=== PATIENT | male | born 1965 | race Caucasian/White ===

== ENCOUNTER 2020-06-02 17:22 | Emergency (ER) | payer OTHER ==
[~2020-06-02] VITALS: Ht 162.6 cm; Wt 76.2 kg
[~2020-06-02 17:22] MED LIST: AMPI3VIA IVP; CHLO15MO2 PO; HYDR-3165 PO; IBUP200T44 PO; MUPI22OI TP
[2020-06-02 17:25] VITALS: BP 151/86
--- NOTE | 2020-06-02 17:34 | PHYS DOC ---
General Adult EDM: Chief Complaint: LACERATION/AVULSION HPI: HPI: " I walked into some angle iron.. Accidentally... " " It did not disrupt up with my nose.. and bruised outside of my face.." Patient is a 54 year old male prisoner from [facility] work release who presents with above hx and complaints of nose laceration and contusion. Patient denies any loss of consciousness. Has slight bruising abrasion to left side of face but a 3 x 3 cm laceration to bridge of nose. Does not appear to have fractured nose.. No history of travel. No history of severe ill contacts. Has been exposed to other prisoners at [facility] that had Covid. Review of Systems: Review of Systems: Constitutional: Denies fever or chills Eyes: Denies change in visual acuity HENT: Denies nasal congestion or sore throat . Complaints of nose laceration Respiratory: Denies cough or shortness of breath Cardiovascular: Denies chest pain or edema GI: Denies abdominal pain, nausea, vomiting, bloody stools or diarrhea : Denies dysuria Musculoskeletal: Denies back pain or joint pain Integument: Denies rash Neurologic: Denies headache, focal weakness or sensory changes Endocrine: Denies polyuria or polydipsia Lymphatic: Denies swollen glands Psychiatric: Denies depression or anxiety Family History: Family History: Noncontributory Current Medications: Current Meds: See nursing for home meds Allergies: Allergies: Allergies Coded Allergies Type Severity Reaction Last Updated Verified No Known Drug Allergies 04/27/14 No Physical Exam: PE: Constitutional: Moderate acute distress, non-toxic appearance. [] HENT: Normocephalic, nasal laceration and contusion left side of face, bilateral external ears normal, oropharynx moist, no oral exudates, nose normal. [] Eyes: PERRLA, EOMI, conjunctiva normal, no discharge. [] Neck: Normal range of motion, no tenderness, supple, no stridor. [] Cardiovascular:Heart rate regular rhythm, no murmur [] Lungs & Thorax: Bilateral breath sounds are equal at apex on auscultation [few scattered wheezes. Abdomen: Bowel sounds normal, soft, no tenderness, no masses, no pulsatile masses. [] Skin: Warm, dry, no erythema, no rash. [] Back: No tenderness, no CVA tenderness. [] Extremities: No tenderness, no cyanosis, no clubbing, ROM intact, no edema. [] Neurologic: Alert and oriented X 3, normal motor function, normal sensory function, no focal deficits noted. [] DTRs +2 patellar brachial. Amatory without problems. Psychologic: Affect normal, judgement normal, mood normal. [] EKG: EKG: [] Radiology/Procedures: Radiology/Procedures: [] Heart Score: Risk Factors: Risk Factors: DM, Current or recent (<one month) smoker, HTN, HLP, family history of CAD, obesity. Risk Scores: Score 0 - 3: 2.5% MACE over next 6 weeks - Discharge Home Score 4 - 6: 20.3% MACE over next 6 weeks - Admit for Clinical Observation Score 7 - 10: 72.7% MACE over next 6 weeks - Early Invasive Strategies Course & Med Decision Making: Course & Med Decision Making Pertinent Labs and Imaging studies reviewed. (See chart for details) Procedure note: Laceration repair-laceration clean irrigated extensively with normal saline. Closed with 3 simple sutures and 8 running sutures of 6-0 Prolene. Patient keep nose laceration clean and dry until sutures removed. Remove sutures in 6 days. Apply Polysporin 4 times a day. Monitor for infection. Follow-up of primary care. Patient to expect a scar. His tetanus was updated. Impression: 1. Laceration 3 x 3 cm angulated laceration 2. Abrasion contusion left side of face [] Dragon Disclaimer: Dragon Disclaimer: This electronic medical record was generated, in whole or in part, using a voice recognition dictation system. Departure Departure: Referrals: PCP,NO (PCP) Dragon Disclaimer This chart was dictated in whole or in part using Voice Recognition software in a busy, high-work load, and often noisy Emergency Department environment. It may contain unintended and wholly unrecognized errors or omissions. Dragon Disclaimer This chart was dictated in whole or in part using Voice Recognition software in a busy, high-work load, and often noisy Emergency Department environment. It may contain unintended and wholly unrecognized errors or omissions. JENNIFER POTTER MD Jun 02, 2020 17:34
[2020-06-02] MEDS ORDERED: LIDOCAINE 1%/EPI 1:100,000 20 ML VIAL. ONE (17:36)
[2020-06-02] MEDS ORDERED: BACITRACIN ZINC TOPICAL OINT PACKET. TP ONE (17:43)
[2020-06-02] MEDS ORDERED: LIDOCAINE 2% 20 ML VIAL. IJ ONE (17:45)
[2020-06-02] MEDS: BACITRACIN ZINC TOPICAL OINT PACKET. TP ONE (17:45)
[2020-06-02] MEDS: DIPH,PERTUSS(ACELL),TET VAC/PF 0.5 ML SYRINGE. VAX IM ONE (17:48)
== END 2020-06-02 18:09 | disposition home or self-care (01) ==
LOC: ER 17:22 → EEVIPCON 17:22 → ER 18:09
DX: S01.21XA Laceration without foreign body of nose, initial encounter (principal); Y28.8XXA Contact with other sharp object, undetermined intent, initial encounter; Y93.89 Activity, other specified; Y92.148 Other place in prison as the place of occurrence of the external cause; Y99.8 Other external cause status
CPT/HCPCS: 12013; 90471; 90715; 99283